=== PATIENT | male | born 1970 | race Caucasian/White ===

== ENCOUNTER 2024-06-18 06:07 | Day surgery (SDC) | payer OTHER, SELFPAY ==
[2024-06-07 08:19] VITALS: BMI 28.8
[2024-06-18] VITALS (10 sets, daily range): BP systolic 94–130; BP diastolic 58–84; PULSE 54–68; RESP 12–18; TEMP 36.1–36.4; O2SAT 93–98; BMI 29.0
--- NOTE | 2024-06-18 | DI.RAD.S_ITS ---
PROCEDURE: XR HIP W PEL IF DONE LT 2V INDICATIONS: TOTAL HIP TECHNIQUE: AP pelvis and lateral view of the hip acquired. [facility] [place], [place] PELVIS WITH LATERAL HIP LEFT, 06/08/2024, 14:12. FINDINGS: Bones: Intraoperative left hip arthroplasty, with hardware components in expected positions. The hip joint appears congruent. The visualized bony structures appear intact. Soft tissues: Overlying postoperative changes are noted. No suspicious soft tissue densities. IMPRESSION: Intraoperative left hip arthroplasty. Dictated by: Cathy Paris M.D. on 06/18/2024 at 15:52 Approved by: Cathy Paris M.D. on 06/18/2024 at 15:53
--- NOTE | 2024-06-18 06:00 | DI.RAD.S_ITS ---
PROCEDURE: XR HIP W PEL IF DONE LT 2V INDICATIONS: meena TECHNIQUE: AP pelvis and lateral view of the hip acquired. COMPARISON: [facility], [facility]ON, XR HIP W PEL IF DONE LT 2V, 06/18/2024, 9:09. FINDINGS: Bones: Patient is status post left hip arthroplasty, with hardware components in expected positions. The hip joint appears congruent. The visualized bony structures appear intact. Soft tissues: Overlying postoperative changes are noted. No suspicious soft tissue densities. IMPRESSION: Expected post-operative appearance of a hip arthroplasty. Dictated by: Cathy Paris M.D. on 06/18/2024 at 15:58 Approved by: Cathy Paris M.D. on 06/18/2024 at 15:58
[2024-06-18] MEDS: ACETAMINOPHEN 325 MG TABLET 975 MG PO (06:59)
[2024-06-18] MEDS: MELOXICAM 7.5 MG TABLET PO (06:59)
[2024-06-18] MEDS: LACTATED RINGERS 1,000 ML 42 ML IV (07:01)
--- NOTE | 2024-06-18 07:43 | PM.PREOP ---
Pre-operative Note Interval Note History & Physical reviewed/Exam performed by Physician: Yes Changes to H&P: No
--- NOTE | 2024-06-18 08:43 | SUR.OPER ---
Supine on padded [place] table with bilateral legs secured in padded positioning boots and suspended in positioning spars, operative leg in traction per surgeon. Head on one pillow. Bilateral arms secured on padded armboards <90 degrees abductiion. Padded perineal post in place per surgeon.
[2024-06-18] MEDS: TRANEXAMIC ACID 1,000 MG VIAL 2000 MG INJ ×2 (08:50→09:47)
[2024-06-18] MEDS: ROPIVACAINE/EPI/CLONIDINE/KET 50 ML SYRINGE INJ (08:51)
[2024-06-18] MEDS: CEFAZOLIN 2 GM/100 ML PREMIX 100 ML IV (08:57)
--- NOTE | 2024-06-18 10:03 | P.OP_ITS ---
Operative Date/Time/Diagnoses Date of procedure: 06/18/24 Pre-op diagnosis: Left hip arthritis Post-op diagnosis: same Procedure & Clinicians Procedure: Left total hip arthroplasty Same procedure as scheduled: Yes Surgeon: Bruno Pitts Group Controller: Siobhan Murphy Anesthesia Type: Spinal, Sedation and Local Operative Notes Estimated Blood Loss (mL): 250 Procedure in detail: Left Uncemented Direct Anterior Depuy Total Hip Arthroplasty: Implants: * Tina Gription size 60 cup?with +4 liner * Actis femoral stem size 5 high offset? * 36 mm +5 ceramic femoral head? Procedure Summary: This 53-year-old male patient has a fairly muscular body habitus so during the approach I partially released the origin of the TFL. I was able to broach the femur without a conjoined tendon release. He had been approximately 8 mm short preoperatively and reduction was very tight because of this. He had a varus proximal femur so a lateralized liner and high offset stem were utilized. Stability and radiographs were appropriate on all parameters was initially trialed implants so those were placed. Bone quality was very high and the femoral stem sat slightly proud relative to the broach, with the collar not q uite in contact with the calcar reaming. Procedure in Detail: This patient was seen preoperatively and evaluated for hip pain which was refractory to numerous nonoperative treatment modalities. Their hip pain correlated with radiographic changes demonstrating significant degeneration in the hip joint. The risks and benefits of continued nonoperative management versus operative management were discussed at length and all of the patient?s questions were answered. Additional educational materials providing further details beyond our discussion in clinic were provided via a publicly available patient education video which included the incidence of medical complications associated with total hip arthroplasty, reasons for revision following total hip arthroplasty, and patient satisfaction rates following total hip arthroplasty. That video can be accessed at [email or web address] . With this understanding of the risks inherent to the procedure, the patient elected to move forward with operative management. Following preoperative optimization, the patient was scheduled for surgery. The patient was met in the preoperative holding area the day of the procedure and all questions were answered. The patient?s nares were swabbed with betadine in order to decolonize them from MRSA. Informed consent was signed and the left limb was marked with indelible ink.? The patient was brought back to the operating room where anesthesia was induced. The patient was transferred to the Holmes table and all bony prominences were padded. The operative site was prepped and draped in the usual sterile fashion. Prior to incision, tranexamic acid and cefazolin were administered. Operative templating images were displayed demonstrating the anticipated implant sizes and correct operative extremity. A timeout procedure was performed verifying the patient?s identity, medical comorbidities, allergies, relevant medications, anesthesia type and the surgical plan. All present were in agreement. The assistance of a physician assistant professor of music was required for positioning, room setup, soft tissue retraction and wound closure. Without this assistance, the procedure would have been significantly more challenging and time consuming.?? A direct anterior approach to the hip was utilized. This was performed with a longitudinal incision through a Heuter interval. The incision was planned 2 cm distal and 2 cm lateral to the ASIS extending towards the lateral patella, in line with the muscle body of the TFL. Following incision, the subcutaneous tissue was dissected while taking care to avoid injury to the lateral femoral cutaneous nerve. The fascia overlying the TFL was identified by dissecting off the overlying fat and identifying perforating vessels to the TFL. The TFL fascia was incised and dissected away from the medial border of the TFL. A cobra retractor was placed over the superior femoral neck between the abductors and the hip capsule and used to reflect the TFL laterally. A [place] self-retainer was then placed in the distal aspect of the wound between the TFL and the rectus femoris. This was tensioned to open up the direct anterior interval and the lateral circumflex vessels were identified and coagulated using electrocautery. The floor of the TFL fascia was incised, exposing the pericapsular fat overlying the hip capsule. A second cobra retractor was placed on the inferior femoral neck. A double-bent soft tissue retractor was placed on the anterior wall of the acetabulum and used to tension the reflected head of rectus femoris, which was then released in order to limit soft tissue tension. A capsulotomy was made in the midline of the anterior hip capsule in line with the femoral neck ending at the vastus tubercle. The double-bent retractor was removed in order to limit the amount of time that a soft tissue retractor remained on the anterior wall and protect the femoral nerve. Tag stitches were placed in the superior and inferior leaflets of the hip capsule. An Yonis soft tissue retractor was introduced over the tag stitches and tensioned in the interval between the rectus femoris and the TFL in order to retract and protect those muscles. The cobra retractors were replaced intracapsularly, with one over the superior neck in the pocket created by the base of the greater trochanter and the other on the femoral head. The capsulotomy was extended laterally to the base of the greater trochanter and medially to the lesser trochanter. This required externally rotating the hip. Once the lesser trochanter had been identified, a neck cut was planned according to measurements from preoperative templating. A ruler was cut at the length measured between the superior aspect of the lesser trochanter and the collar of the prosthesis. This line was extended towards the inferior aspect of the lateral cobra retractor to plan a cut which would leave minimal residual femoral neck laterally. The neck was cut at 60 degrees of external rotation along that line. A second cut was performed to remove a large napkin ring and facilitate head extraction. The napkin ring cut and femoral head were removed.?? A broad anterior wall retractor was placed between the labrum and the anterior capsule so that the anterior capsule would prevent capturing and pinching the femoral nerve anteriorly. An additional retractor was placed on the posterior wall. External rotation and traction were applied through the Holmes table so that the cut surface of the femoral neck would not restrict access to the acetabulum. The labrum was excised sharply and the pulvinar was excised with electrocautery to limit bleeding from branches of the obturator artery. Acetabular reamers were selected based on preoperative templating and measurements of the excised femoral head. These were introduced into the acetabulum. Fluoroscopy was utilized to replicate a standing AP pelvis radiograph by centering over the pelvis, rotating until there was appropriate symmetry between the obturator foramen, and introducing caudal tilt to match the position of the pubic symphysis relative to the sacrococcygeal junction according to the patient?s anatomy. Fluoroscopy was utilized to ensure appropriate reaming depth. Once satisfied with the reaming depth corresponding to the preoperative template and the pinch fit between the columns, an appropriate sized acetabular cup was selected which would provide 1 mm of press-fit. This cup was introduced and manipulated until appropriate abduction and anteversion angles were obtained with careful attention to appropriate abduction and anteversion angles as evaluated by the position of the cup relative to the anterior and posterior daniels of the acetabulum and the AP fluoroscopy which recreated the patient?s standing radiograph. The cup was impacted into place. Peripheral osteophytes were removed. The acetabular liner was then placed with care to ensure locking of the locking mechanism.? Attention was then turned to the femur. All retractors were removed, traction was released, a retractor was placed in the interval between the hip capsule and the gluteus minimus, and the hip was externally rotated to 90 degrees. Traction was applied through the Holmes table to tension the lateral capsule and this was released using electrocautery. Traction was released and a Holmes hook was placed posteriorly around the proximal femur at the level of the vastus ridge. The table height was lowered in order to restrict the tension on the anterior s tructures during hip hyperextension to limit the risk of femoral nerve palsy. With traction off and the hip at 90 degrees of external rotation, the hip was hyperextended and adducted while manually elevating the femur away from the acetabulum with the Holmes hook to ensure it would not be caught behind the greater trochanter. An asymmetric retractor was placed over the calcar and a broad double-pronged retractor was placed over the greater trochanter. The tag stitch capturing the lateral leaflet of the capsule was moved to the medial side, leaving the conjoined and piriformis tendons isolated in the face of the greater trochanter. The hip was externally rotated and elevated. A release of the conjoined tendon was not necessary in order to obtain adequate exposure for broaching. The canal was opened with an opening broach and a rasp was used to remove cancellous bone. A rongeur was used to remove the residual lateral bone at the base of the greater trochanter to avoid placing the stem in varus. The femur was then broached to the appropriate sized stem yielding good rotational fit and fill of the canal as well as appropriate version of the stem trial. Neck and head trials were placed, all retractors were removed and the hip was returned to neutral abduction and extension. I then reduced the hip. Initial trialing was performed with a size 5 broach, a high offset neck and a +5 head. I initially manually externally rotated the hip and found no instability. I then locked the hip in 45 degrees of external rotation and dropped it to the floor with traction off which demonstrated no instability. An AP pelvis fluoroscopic image matching the preoperative standing radiograph with both lesser trochanters visible and both hips in 40 degrees of external rotation demonstrated appropriate leg length and offset. AP and lateral hip fluoroscopic images were obtained to evaluate the broach size which demonstrated good canal fill. The hip was dislocated and I returned to the broaching position. Based on my evaluation during initial trialing I planned to place these definitive implants. The definitive stem was placed and the trunnion was cleaned and dried. I placed a ceramic head onto the trunnion and impacted it into place on the [place] taper.?? All retractors were removed and the hip was reduced. A dilute mixture of betadine and peroxide was used to bathe the soft tissues during final fluoroscopic assessment. Appropriate component positioning was confirmed on an AP pelvis radiograph with the operative and nonoperative legs in 40 degrees of external rotation, evaluating leg length and offset. Appropriate stem fill was evaluated on AP and lateral hip radiographs. No fractures were identified on these radiographs. There was no hip instability with maximum (110?) external r otation as well as a 45 degree drop test. The hip was copiously irrigated with pulse lavage. The capsule was closed with absorbable interrupted suture. The TFL fascia was closed with barbed suture while carefully protecting the lateral femoral cutaneous nerve from entrapment. A mixture of Ropivacaine, Epinephrine, Clonidine and Toradol was infiltrated throughout the soft tissues. The skin was closed with 2-0 and 3-0 sutures. Surgical glue was applied and a soft dressing was placed.??The sponge, instrument and needle counts were reported as being correct at the end of the case.??No obvious complications occurred. The patient was transferred from the [facility] back to a stretcher. The patient emerged from anesthesia without difficulty and was taken to the PACU in a stable condition.? Plan for aftercare: * No hip precautions. Patient does yoga and I will camp head counselor him in the outpatient setting regarding yoga poses to avoid * Weightbearing as tolerated * Aspirin 81 twice per day for DVT prophylaxis * Anticipate discharge home today * Change into normal clothes upon arrival on the hospital floor * Mobilize in the halls as much as is logistically possible. If physical therapy is unavailable for mobilization, then patient should mobilize with nursing staff * Multimodal pain regimen with no IV opioids ordered * Apply ice machine to operative hip. Ensure that sufficient ice is in the chamber for the pad to remain cold * Follow up at [facility] in 2 weeks * Detailed postoperative instructions available at [email or web address]
[2024-06-18] MEDS: OXYCODONE IR 5 MG TABLET PO ×2 (10:37→13:27)
--- NOTE | 2024-06-18 13:05 | SUR.PHASEII ---
Transition of care from RAYMON Lubin at 1215. PT consulted by offgoing RN. Patient assessed at bedside, see flowsheet. Orthostatic VS obtained. Patient dressed with 2x standby assist and front-wheel walker.
--- NOTE | 2024-06-18 13:30 | PT.IIE ---
Current Diagnoses Unilateral primary osteoarthritis, left hip (06/18/24) Surgery Performed Operation Date: 06/18/24 07:45 Actual Procedures p Total Hip Arthroplasty/Anterior Approach(Left) - Bruno Pitts MD Surgical History (Last Updated 06/07/24 @ 08:18 by Sharon Good RN) Hx of colonoscopy (04/26/24) Physical Therapy Inpatient Evaluation/Re-Eval M1 PT/OT-IP Prior Functional Status Start: 06/18/24 12:37 Freq: NEEDED Status: Active Protocol: Document 06/18/24 12:35 MB (Rec: 06/18/24 13:29 MB [id number]) Medical Review Prior Functional Status Medical History Reviewed Yes Diet/Fluid Consistency Regular Communication WNLs Mobility and Gait I Activities of Daily Living and IADL's I, works, does yoga Social History Household Members none Living Arrangements Apartment/Condo Number of Floors (Floors) One Floor Number of Stairs To Enter/Railing? 10 steps with railing to enter . Home Environment Standard Height Toilet,Tub/ Shower Home Equipment Front Wheel Walker Employment Status Movie Actor Employed Additional Social History Comment High bed M2 PT-IP Current Condition Start: 06/18/24 12:37 Freq: NEEDED Status: Active Protocol: Document 06/18/24 12:35 MB (Rec: 06/18/24 13:29 MB [id number]) Physical Therapy Current Condition Current Condition Evaluation Date 06/18/24 Treatment Diagnosis Left anterior AURELIANO M3 PT-IP Subjective Start: 06/18/24 12:37 Freq: NEEDED Status: Active Protocol: Document 06/18/24 12:35 MB (Rec: 06/18/24 13:29 MB [id number]) Subjective Physical Therapy Visit Type Type Initial Evaluation Visit Start Time 12:35 Visit Stop Time 13:15 Number of FIELD HE[employer] OFFICER Visits 0 Physical Therapy Visit Comments Patient Comments Pt reports weird paresthesias in his leg and he is agreeable to PT. Therapy Pain Assessment Pain When Pain Assessed At Rest Pain Present Pain Present Pain Reported Location left hip Intensity 5 Scale Used Numeric (0 - 10) M4 PT-IP Mobility and Gait Start: 06/18/24 12:37 Freq: NEEDED Status: Active Protocol: Document 06/18/24 12:35 MB (Rec: 06/18/24 13:29 MB [id number]) PT-Transfer Assessment Sit to and From Stand Sit to and from Stand Standby Assistance,1 Person Assistance,Use of Upper Extremities Equipment Transfer Assistive Device Gait Belt,Front Wheeled Walker Orthotic/Prosthetic Devices or Brace: No Transfers Transfer Destination Bed,Wheelchair Transfer Technique Ambulation Transfer Ability Level of Assist Standby Assistance,1 Person Assistance,Use of Upper Extremities Comments Mobility Comments Pt tends to guard left leg and gait train with step-to pattern and PT demonstrates step-through pattern to start when he is ready Gait Assessment Gait Gait Assistance Required: Standby Assistance Distance (Feet) 10 Able to Maintain Weight Bearing Status Yes During Gait Assistive Devices Assistive Device Gait Belt,Front Wheeled Walker Orthotic/Prosthetic Devices or Brace: No Gait Deviations General Gait Pattern Antalgic,Decreased Stride Length,Decreased Feet Clearance,Flexed Trunk,Step-to Gait Factors Limiting Gait Function Factors Limiting Gait Function Decreased Sensation,Decreased Strength,Incoordination, Limited Range of Motion,Pain Comments Gait Comments 10' forward and back x2; 15'x2 Stair Climbing Assessment Evaluation Level of Assist On Stairs Contact Guard Assistance,1 Person Assistance Devices Stair Climbing Assistive Devices Left Railing Technique/Endurance Stair Climbing Direction Ascend and Descend Stair Climbing Technique Step to Step Number of Steps Climbed 3 Query Text: Stair Climbing Set # Repetitions (reps) 2 Comments Stair Climbing Comments Pt facing left rail and step up first with right foot and down first with left foot, both hands on left rail and facing left rail for ascend and same rail for descend PT-Balance Assessment Sitting Balance and Reactions Static Sitting Balance Ability Normal Dynamic Sitting Balance Ability Normal Standing Balance and Reactions Static Standing Balance Ability Good Dynamic Standing Balance Ability Good Device Used RW M5 PT-IP Objective Assessments Start: 06/18/24 12:37 Freq: NEEDED Status: Active Protocol: Document 06/18/24 12:35 MB (Rec: 06/18/24 13:29 MB [id number]) Orientation Orientation/Cognition Level of Alertness Alert Memory Description No Deficits Noted Gross Range of Motion Upper Extremity ROM Assessment Within Functional Limits Lower Extremity ROM Assessment Left Impaired Strength Comments Strength Comments LLE is functional for gait with limitations in left hip range and strength same day AURELIANO Coordination Assessment Gross Coordination Gross Coordination Impaired Sensation Assessment Sensation Gross Sensation Left LE Impaired Sensation Description Paresthesia,Tingling,[place] Muscle Tone Muscle Tone WNL Yes M6 PT-IP Treatment Start: 06/18/24 12:37 Freq: NEEDED Status: Active Protocol: Document 06/18/24 12:35 MB (Rec: 06/18/24 13:29 MB [id number]) Physical Therapy Treatment Exercises Exercises Ankle Pumps,Gluteal Sets,Quad Sets,Heel Slides Education Education Provided Weight Bearing Status,Post-Op Packet,Safety M7 PT-IP Assessment and Plan Start: 06/18/24 12:37 Freq: NEEDED Status: Active Protocol: Document 06/18/24 12:35 MB (Rec: 06/18/24 13:29 MB [id number]) PT Summary Assessment and Plan Potential Rehabilitation Potential Excellent Status of Condition at Evaluation Evolving Summary Impairments Pain,ROM,Strength,Balance, Coordination,Sensation,Bed Mobility,Transfers,Gait, Activity Tolerance Progress Towards Goals Progressing Toward Goals Assessment Summary Pt is a 53 y/o male presenting with some LLE pain and paresthesias same day L anterior AURELIANO. PT does not get to see mobility on [facility], which is very unlike a home bed, anyway, as pt is up to edge of [facility] with nsg upon arrival. Pt presents with decreased left leg ROM and strength after hip replacement and he tends to gait train with step-to pattern. He increases WB through left leg when cued. Pt does well with SO with stair training and he will d/c home with her and his mom's help. Encouraged icing, ROM exercises and working on step-through, normalized gait pattern. Pt has OPPT set-up for next week. Frequency of Treatment Frequency Of Treatment Discharge Precautions Other Precautions No hip precautions Weight Bearing Status Weight Bearing Status Weight Bear as Tolerated Recommendations To Nursing Amount of Assist Needed Standby Assistance Discharge Recommendations PT Discharge Recommendations Home with 08/11 Assist Available Transportation Needs at Discharge Private Vehicle
== END 2024-06-18 13:32 | disposition home or self-care (01) ==
LOC: OR 06:10 → AC 06:11
PROVIDERS: PCP Family Medicine; Referring Provider Orthopaedic Surgery Adult Reconstructive Orthopaedic Surgery; Visit Provider Orthopaedic Surgery Adult Reconstructive Orthopaedic Surgery
PROC: (CPT 27130; principal; 2024-06-18 07:45)
DX: M16.12 Unilateral primary osteoarthritis, left hip (principal); F17.210 Nicotine dependence, cigarettes, uncomplicated; M25.752 Osteophyte, left hip
CPT/HCPCS: 27130; 73502; 76000; 97116; 97161; 97535; C1776; J0690; J1100; J1885; J2250; J2405; J2704; J3010